=== PATIENT | female | born 1975 | race Caucasian/White ===

== ENCOUNTER 2016-10-17 10:17 | Emergency (ER) | payer OTHER ==
[~2016-10-17 10:17] MED LIST: CARV12.52 PO; CHOL500050 PO; DULO60CA42 PO; LETR2.5T4 PO; LISI-571 PO; LORA1TAB PO; OXYC-466 PO; PANT20T PO; PREG225C PO; SUMA50TA31 PO
[2016-10-17 10:40] VITALS: BP 126/76; PULSE 70; RESP 16; O2SAT 97
--- NOTE | 2016-10-17 10:45 | ED.REPORT ---
HPI-Chest Pain 40 and Over Date of Service Oct 17, 2016 ED Provider: Roni Burkett DO Patient is a 41 year old female with a hx of breast cancer, ejection fractions, MRSA, borderline HTN, presents to the ED from due to left sided chest pain for three days which radiates into her left arm and neck. Her pain was initially intermittent and has become consistent over the past 24 hrs. She reports she, "just doesn't feel right." Pt c/o associated hot flashes, nausea, light headedness. Walking increases her discomfort and she ranks her pain at 5/ 10 in severity. She denies SOB, nausea vomiting, dysuria, cough, edema and has not been recently sick otherwise. She has been in remission from breast cancer for 5 years. She is currently on lisinopril, Lyrica, and Cymbalta and uses a CPAP at night. Dr. Varela is her oncologist. Her last echocardiogram was 1.5 years ago (65%) and she is due for another one in a month. She has never had a stress test. Nursing Notes Stated Complaint: CHEST PAIN/SENT FROM Chief Complaint: Chest Pain Nursing Notes Reviewed: Yes Allergies: Coded Allergies: Sulfa (Sulfonamide Antibiotics) (Unverified Allergy, Severe, rash, 10/22/15 ) hydromorphone HCl (Verified Allergy, Severe, N&V, 06/08/12) trastuzumab (Verified Allergy, Severe, CARDIOMYOPATHY, 06/08/12) Scheduled Carvedilol (Carvedilol) 12.5 Mg Tablet 12.5 MG PO BID Cholecalciferol (Vitamin D3) (Vitamin D3) 50,000 Unit Capsule 50,000 UNIT PO WEEKLY Duloxetine (Cymbalta) 60 Mg Capsule.dr 60 MG PO DAILY Letrozole (Letrozole) 2.5 Mg Tablet 2.5 MG PO DAILY Lisinopril (Lisinopril) 5 Mg Tablet 5 MG PO BID Pantoprazole DR (Protonix) 20 Mg Tablet 20 MG PO DAILY Pregabalin (Lyrica) 225 Mg Capsule 225 MG PO BID Sumatriptan Succinate (Imitrex) 50 Mg Tablet 50 MG PO ASDIRECTED Scheduled PRN Lorazepam (Lorazepam) 1 Mg Tablet 1 MG PO HS PRN PRN For Insomnia oxyCODONE-Acetaminophen 10-325 mg (oxyCODONE-Acetaminophen 10-325 mg) 1 Each Tablet 1 TABLET PO Q6H PRN PRN For Pain General Time Seen by MD: 10:40 Chief Complaint Chest pain Hx Obtained From: Patient Arrived By: Walk-in Sudden in Onset?: Yes Onset Occurred: 3 days ago Symptom Duration: Since onset Severity: Current: Pain level 5 out of 10 Recent Healthcare: Recent doctor visit Similar Sx Previous: Yes Past Medical History Past Medical History Breast cancer, ejection fractions, MRSA, borderline HTN Fibromyalgia Past Surgical History Mastectomy, reconstructive surgery to breasts, port surgery, axillary dissection to right arm Reports: Cholecystectomy, Hysterectomy Family History Reports: Transient ischemic attack Smoking History Former Smoker Social History Alcohol Use: Denies alcohol use Drug Use: Denies drug use Other Social History: Lives with children Ambulatory Status Independent Review of Systems Constitutional: Reports: Chills Respiratory: Denies: Non-productive cough, Shortness of breath Cardiovascular: Reports: Chest pain GI: Reports: Nausea, Denies: Vomiting Neurologic: Reports: Lightheaded Complete sys rev & neg: except as marked. Female: Denies: Dysuria Physical Exam Initial Vital Signs Vital Signs (First) Date Time Temp Pulse Resp B/P Pulse Ox O2 Delivery O2 Flow Rate FiO2 10/17/16 10:40 36.6 70 16 126/76 97 Room Air Initial VS: Reviewed Head / Eyes: Atraumatic, Normocephalic, PERRL ENT: Mucous membranes moist, Conjunctiva normal, No scleral icterus Neck: Supple, Non-tender, Full range of motion Extremities: Vascular intact, Neuro intact, No swelling, No tenderness Skin: Warm, Dry, No cyanosis Neurologic: Alert, Oriented, Nonfocal Psychiatric: Mood/affect normal, Behavior normal, Normal thought content General/Constitutional: Awake, Alert, Well appearing, Cooperative, Not toxic appearing Appearance / Presentation: Positive: Obese Respiratory / Chest: Atraumatic, Breath sounds NL, Breath sounds = bilat, No respiratory distress left chest wall tenderness Cardiovascular: Heart rate NL, Regular rhythm, Heart sounds NL, No gallop, No murmurs, No rubs Abdomen: Atraumatic, Soft, Non-tender, No guarding, No rebound, BS normoactive Interpretation & Diagnostics Lab Results Interpretation Result Diagram: 10/17/16 1005 10/17/16 1005 Test 10/17/16 10:05 White Blood Count 6.8th/mm3 (3.8-10.1) Red Blood Count 4.54mil/mm3 (3.90-5.20) Hemoglobin 13.1g/dL (12.0-15.6) Hematocrit 39.7% (35.0-46.0) Mean Corpuscular Volume 87.4fL (81-100) Mean Corpuscular Hemoglobin 28.9pg (27.0-35.0) Mean Corpuscular Hemoglobin Concent 33.0% (32.0-37.0) Red Cell Distribution Width 13.3% (12.3-15.4) Platelet Count 266bil/L (150-400) Neutrophils (%) (Auto) 68.2% (40-74) Lymphocytes (%) (Auto) 19.9% (14-46) Monocytes (%) (Auto) 7.2% (4-12) Eosinophils (%) (Auto) 4.3% (0-5) Basophils (%) (Auto) 0.3% (0-3) Sodium Level 141mEq/L (134-144) Potassium Level 4.3mEq/L (3.5-5.2) Chloride Level 104mEq/L (97-108) Carbon Dioxide Level 20mmol/L (18-29) Blood Urea Nitrogen 15mg/dL (6-24) Creatinine 0.50mg/dL (0.57-1.00) Estimat Glomerular Filtration Rate 193mL/min (>59) Glucose Level 128mg/dL (60-99) Calcium Level 9.1mg/dL (8.5-10.1) Magnesium Level 1.8mg/dL (1.6-2.6) Total Bilirubin 0.6mg/dL (0.0-1.2) Aspartate Amino Transf (AST/SGOT) 86U/L (0-50) Alanine Aminotransferase (ALT/SGPT) 98U/L (0-32) Alkaline Phosphatase 99U/L (25-150) Troponin T < 0.010ug/L (0.0-0.011) Pro-B-Type Natriuretic Peptide 32.79pg/mL (0-130) Total Protein 7.3g/dL (6.4-8.4) Albumin 4.5g/dL (3.4-5.0) ECG Interpretation ECG Interpretation: LVH no acute changes from 01/31/16 Time: 11:07 Interpreted by: ED physician Normal ECG Interpretation: Normal sinus rhythm (68), No acute ischemic changes X-Ray Chest Interpretation Chest Xray Interpretation: IMPRESSION: No acute cardiopulmonary disease. Dictated by: Quentin Cerda M.D. on 10/17/2016 at 11:44 Approved by: Quentin Cerda M.D. on 10/17/2016 at 11:45 View: Portable Interpretation / Wet Read by: Interpret - Radiologist Re-Eval/Medical Decision Med Decision/Clinical Course Heart score low, PERC negative, low risk on Wells, left chest wall tenderness, pain resolved, ambulates without difficulty, will be discharged. Close outpatient follow-up and aspirin therapy recommended. Return precautions given. Time of Eval: 12:04 Patient Status: Mild relief Re-Evaluation/Progress Note: Pt rechecked. Blood tests and chest x-ray do not show any signs of heart attack. Road test without recurrent pain. Informed pt of plan for treatment. Pt understands and agrees with plan. F/U and RTER warnings given. All questions addressed. Counseled Regarding: Diagnosis, Lab results, Need for follow-up, When/why to return to ED Discharge & Departure Primary Impression: Chest pain Chest pain type: unspecified Qualified Code: R07.9 - Chest pain, unspecified Disposition: Home Discharge Condition All VS Reviewed: Yes Condition: Stable Additional Instructions: Thank you for coming to the Emergency Room today. Your tests do not show signs of a heart attack. Be sure to take a baby aspirin daily, 81 mg. Follow up with your PCP in the next week and get a stress test. If you are having intense , severe chest pressure, radiating to jaw or arm, nausea, shortness of breath, or any new or worsening symptoms, please return to the Emergency Room. We hope you feel better soon! Referrals: Doris Schwarz DO (PCP) Monica Attestation Portion of this note were transcribed by Lidia Cole. I, Dr. Burkett, personally performed the history, physical exam, and medical decision-making: I reviewed and confirmed the accuracy for the information in the transcribed note. Signed by: monica Li, 10/17/16 [id number] copies to: Doris Schwarz Timothy S DO Oct 17, 2016 10:45 LIDIA COLE Oct 17, 2016 10:59
[2016-10-17] MEDS ORDERED: Ondansetron 2 mg/mL 2 mL Inj IVPUSH ONE (10:55)
[2016-10-17 11:03] LABS: BASOPHILS % (AUTO) 0.3 % (0-3); EOSINOPHILS % (AUTO) 4.3 % (0-5); MONOCYTES % (AUTO) 7.2 % (4-12); Mean Corpuscular Hemoglobin 28.9 pg (27.0-35.0); Mean Corpuscular Volume 87.4 fL (81-100); NEUTROPHILS % (AUTO) 68.2 % (40-74); Platelet Count 266 bil/L (150-400)
[2016-10-17 11:23] LABS: TROPONIN T < 0.010 ug/L (0.0-0.011)
[2016-10-17 11:25] LABS: Magnesium 1.8 mg/dL (1.6-2.6)
--- NOTE | 2016-10-17 11:47 | DRSVH ---
PROCEDURE: X-RAY CHEST, TWO VIEWS ([id number]) INDICATIONS: chest pain TECHNIQUE: 2 views of the chest were acquired. COMPARISON: [facility], CR, CHEST 2VW, 11/25/2011, 10:35. [facility], CR, CH EST 1VW (PORTABLE), 01/31/2015, 0:35. FINDINGS: Surgical changes and devices: Multiple surgical clips in the left axilla. Lungs and pleura: No pleural effusions or pneumothorax. Lungs are clear. Mediastinum: Mediastinal contours are normal. Heart size is normal. Bones and chest wall: No suspicious bony abnormalities. Soft tissues appear unremarkable. IMPRESSION: No acute cardiopulmonary disease. Dictated by: Quentin Cerda M.D. on 10/17/2016 at 11:44 Approved by: Quentin Cerda M.D. on 10/17/2016 at 11:45
[2016-10-17 12:34] VITALS: BP 127/74; PULSE 68; RESP 16; O2SAT 97
[2017-01-12] MEDS ORDERED: OMEP20CA11 PO (16:52)
== END 2016-10-17 12:35 | disposition home or self-care (01) ==
LOC: SED 10:17
DX: R07.9 Chest pain, unspecified (principal); R11.0 Nausea; R42 Dizziness and giddiness; N95.1 Menopausal and female climacteric states; Z85.3 Personal history of malignant neoplasm of breast; Z86.79 Personal history of other diseases of the circulatory system; Z86.14 Personal history of Methicillin resistant Staphylococcus aureus infection; Z99.81 Dependence on supplemental oxygen; Z87.898 Personal history of other specified conditions; Z87.891 Personal history of nicotine dependence; Z88.8 Allergy status to other drugs, medicaments and biological substances; Z88.5 Allergy status to narcotic agent; Z88.2 Allergy status to sulfonamides